=== PATIENT | male | born 1980 | race Caucasian/White ===

== ENCOUNTER 2025-04-03 09:16 | Outpatient (AMB) | payer OTHER, SELFPAY ==
--- NOTE | 2025-04-03 09:19 | A.OFFPC_ITS ---
Vital Signs 04/03/25 09:29 Height 5 ft 10.87 in Weight 220 lb 4 oz BMI 30.8 BP 123/90 H Blood Pressure Location Rt brachial Position Sitting Respiration 16 Pulse 82 Pulse Source Pulse Oximeter Temp 97.6 F Temp Source Oral Pulse Oximetry (%) 97 Oxygen Delivery Method Room Air Intake Visit Reasons: [employer] WORK[employer] / Bilateral Leg Pain A Auxiliary Required: No Accompanied by: Self / Same As Patient Allergies No Known Allergies Allergy (Verified 04/03/25 09:20) Medication List - Last Reconciled 04/03/25 by Ramone Allen MD No Known Home Meds Tobacco use date assessed: 04/03/25 Dental Screening Dental Screen Date: 04/03/25 Did you have a dental visit in the last 12 months?: Yes Did you have a dental problem in the last 6 months where you did not have access to dental care?: No Was dental information given to patient?: Patient has dentist HPI HPI Comments History of Present Illness Details History of Present Illness The patient is a 44-year-old male presenting for evaluation of pain in both legs. Bilateral leg pain: The patient reports pain in both legs, located on the sides, which makes it di fficult to bend them. The pain occurs at night and sometimes during the day, was very severe 3-4 weeks ago, but has been getting slightly better recently. He denies any swelling or lower back pain. 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 Onychomycosis: The patient has a long-standing history of a toenail fungal infection, for which a prior topical treatment was ineffective. History of hernia repair: He has a surgical history of bilateral inguinal and umbilical hernia repairs performed via laser about 10 years ago. Health Maintenance: The patient is establishing care, and his last visit with a doctor was about three years ago. He is 44 years old and is due for his initial colon cancer screening, which has not yet been done. Surgical History: - Bilateral inguinal and umbilical herni a repair, approximately 10 years ago. Medications: - The patient reports he is not taking a ny medications. Social History: - Tobacco Use: Denies smoking. - Alcohol Use: Denies drinking alcohol. - Illicit Drug Use: Denies use of illici t drugs. - Sexual History: Reports being sexually active. - Occupation: Works at a restaurant and is on his feet for 10-12 hours per day. - Sleep: Reports sleeping well. Family History: - Father: Had lung cancer, history of sm oking. - Other: Denies any other family history of cancer. Past Medical History - The patient denies any significant med ical history. - Last saw a physician approximately 3 y ears ago. Health Maintenance - Colorectal cancer screening: Patient i s 44 and due for screening. - Screening options including colonoscop y and Cologuard were discussed. - Patient has chosen to proceed with a c olonoscopy. - A comprehensive lab panel will be orde red for health screening, including a CBC, CMP, HbA1c, lipid panel, vitamin B12, vitamin D, folate, HIV, Hepatitis B, and Hepatitis C. [facility] Family History (Updated 04/03/25 @ 09:31 by uLis Enrique Gann MA) Father Diabetes Lung cancer Mother No problems noted. Social History Housing: House Patient Tobacco Use Status: Never used Tobacco service: No Current occupational status: employed Cognitive needs: No Hearing needs: No Vision needs: No Questionnaire PHQ-9 Over the last 2 weeks, how often have you been bothered by any of the following problems? 1. Little interest or pleasure in doing things: not at all 2. Feeling down, depressed, or hopeless: not at all 3. Trouble falling or staying asleep, or sleeping too much: not at all 4. Feeling tired or having little energy: not at all 5. Poor appetite or overeating: not at all 6. Feeling bad about yourself - or that you are a failure or have let yourself or your family down: not at all 7. Trouble concentrating on things, such as reading the newspaper or watching television: not at all 8. Moving or speaking so slowly that other people could have noticed. Or the opposite - being so fidgety or restless that you have been moving around a lot more than usual: not at all 9. Thoughts that you would be better off or of hurting yourself in some way: not at all Total score: 0 Source: Developed by Drs. Osmel Omalley, Sharyn Puri, Osiel Cantor and colleagues, with an educational charlotte from [employer]. Thrive Questionnaire Date Thrive assessed: 04/02/25 I am a: Patient What is your living situation today?: I have a steady place to live Within the past 12 months, did the food you bought not last and you didn't have the money to get more?: Never true Within the past 12 months, did you worry whether your food would run out before you got money to buy more?: I choose not to answer this question Do you have trouble paying for medicines?: No Do you have trouble getting transportation to medical appointments?: No Do you have trouble paying your heating and electricity bill?: No Do you have trouble taking care of your child, family member or friend?: No Do you have trouble with day-to-day activities such as bathing, preparing meals, shopping, managing finances, etc.?: No Are you currently unemployed and looking for a job?: Yes Are you interested in more education?: No Please select the resources that you would like help with: None Currently or been in a relationship where the following occur: No concerns reported THRIVE Score: 0 AUDIT C Alcohol Use Questionnaire (AUDIT-C) 1. How often do you have a drink containing alcohol?: Never 2. How many drinks containing alcohol do you have on a typical day when you are drinking?: 1 or 2 3. How often do you have six or more drinks on one occasion?: Never Total Score: 0 SAKINA-7 AMB Questionnaire SAKINA-7 Date SAKINA - 7 assessed: 04/03/25 Feeling nervous, anxious, or on edge: 0 = Not at all Not being able to stop or control worryin = Not at all Worrying too much about different things: 0 = Not at all Trouble relaxin = Not at all Being so restless that it is hard to sit still: 0 = Not at all Becoming easily annoyed or irritable: 0 = Not at all Feeling afraid as if something awful might happen: 0 = Not at all Total SAKINA-7 score (0-4 normal; 5-9 mild; 10-14 moderate; 15-21 severe): 0 Source: Developed by Drs. Osmel Omalley, Sharyn Puri, Osiel Cantor and colleagues, with an educational charlotte from [employer]. Review of Systems Narrative Review of Systems - Musculoskeletal: Reports bilateral leg pain that worsens with flexion. - Constitutional: Reports sleeping well. - GI/: Reports normal bowel and bladder function. - All other systems reviewed and are negative. 10-point ROS reviewed and negative except as noted in HPI Physical exam (Primary Care) Vital Signs: Last Vital Signs Temp 97.6 F 04/03/25 09:29 Pulse 82 04/03/25 09:29 Resp 16 04/03/25 09:29 BP 123/90 H 04/03/25 09:29 Pulse Ox 97 04/03/25 09:29 Oxygen Delivery Method Room Air 04/03/25 09:29 BMI result Body Mass Index 30.8 Tobacco/Smoking Status: Tobacco use Status Tobacco use date assessed 04/03/25 04/03/25 09:22 Patient Tobacco Use Status Never used Tobacco 04/03/25 09:22 PHQ-9: PHQ-9 Score PHQ-9: Total score 0 04/03/25 09:22 Thrive Assessment: Date of Thrive Assessment Date Thrive assessed 04/02/25 04/03/25 09:22 Currently or been in a relationship where the following occur: No concerns reported Narrative Physical Exam General: Well-appearing, in no acute distress. Vital signs: Within normal limits. HEENT: Normocephalic, atraumatic. PERRLA, EOMI. Conjunctiva clear, sclera anicteric. Oropharynx clear, mucous membranes moist. TMs intact bilaterally. Neck: Supple, no lymphadenopathy, no thyromegaly, no JVD or carotid bruits. Cardiovascular: RRR, normal S1/S2, no murmurs, rubs, or gallops. Peripheral pulses 2+ and symmetric. No edema. Respiratory: Lungs clear to auscultation bilaterally, no wheezes, rales, or rhonchi. Normal effort. Abdomen: Soft, non-tender, non-distended. Normoactive bowel sounds. No hepatosplenomegaly, no masses. MSK: Full range of motion, no joint swelling or deformity. Normal gait. Notable for pain in both lower legs, particularly on the sides, exacerbated by prolonged standing. Presence of varicose veins noted. Skin: Warm, dry, intact. No rashes, lesions, or pallor. Presence of nail fungus noted. Neuro: Alert and oriented x3. Cranial nerves II-XII intact. Strength 5/5 throughout. Sensation intact. Reflexes 2+ symmetric. Normal coordination and gait. Psych: Appropriate mood and affect. Normal judgment and insight. Coding Level of Care Code New Pt Level 4 (33161) Diagnoses Bilateral leg pain M79.604; M79.605 Varicose veins of both lower extremities with pain I83.813 Varicose vein complication: pain Laterality: bilateral Onychomycosis B35.1 History of hernia repair Z98.890; Z87.19 Class 1 obesity E66.9 Assessment & Plan Assessment & Plan (1) Bilateral leg pain: Code(s): M79.604 - Pain in right leg; M79.605 - Pain in left leg (2) Varicose vein of leg: Code(s): I83.90 - Asymptomatic varicose veins of unspecified lower extremity Qualifiers: Varicose vein complication: pain Laterality: bilateral Qualified Code(s): I83.813 - Varicose veins of bilateral lower extremities with pain (3) Onychomycosis: Code(s): B35.1 - Tinea unguium (4) History of hernia repair: Code(s): Z98.890 - Other specified postprocedural states; Z87.19 - Personal history of other diseases of the digestive system (5) Class 1 obesity: Code(s): E66.9 - Obesity, unspecified Plan Consent The patient provided verbal consent to record the visit. Patient was informed and verbally consented to the use of an ambient scribe for clinic note documentation during this visit. Plan 1. Bilateral Leg Pain - The pain is attributed to venous insufficiency from prolonged standing, given the presence of varicose veins. - A trial of compression stockings is recommended to promote circulation. - The patient was advised he can purchase these at a pharmacy or online. - The patient will follow up in two weeks to assess the effectiveness of this intervention. 2. Onychomycosis - The patient has a toenail fungal infection that failed to resolve with topical treatment. - Oral antifungal medication is indicated but will be deferred until after lab results are reviewed. 3. Preventative Care: Colon Cancer Screening - As the patient is 44, he is due for screening. - After discussing options including colonoscopy and Cologuard, the patient opted for a colonoscopy. - An order for a colonoscopy will be placed. 4. Preventative Care: New Patient Visit - To establish a baseline of health, comprehensive labs will be ordered, including a complete blood count, comprehensive metabolic panel, hemoglobin A1c, lipid panel, vitamin B12, vitamin D, folate, HIV, and hepatitis B and C screening. - The patient was instructed to get his blood drawn today. - A follow-up visit will be scheduled to discuss the results. Discussion Notes This is a new 44-year-old male patient establishing care. I discussed that his bilateral leg pain is likely due to venous insufficiency from prolonged standing, given his occupation and the presence of varicose veins. I recommended a trial of compression stockings and advised him to follow up in two weeks to assess the response. I noted a fungal infection in his toenails and explained that oral medication is required, as topical treatment has already failed. I informed him that we will wait for his lab results before starting this medication. I also reviewed the need for colorectal cancer screening, explaining the options of a colonoscopy and a Cologuard test. He elected to proceed with a colonoscopy, for which I will place an order. Finally, I explained that I am ordering a comprehensive panel of labs to get an overall picture of his health, with results to be discussed at his follow-up appointment. He provided consent to record the encounter. Patient Instructions - Please purchase and start wearing compression stockings for your leg pain. You can find these at a pharmacy like [facility] or online from [employer]. - Go to the lab to have your blood drawn today. - We will place an order for you to get a colonoscopy for colon cancer screening. - Please follow up in two weeks to discuss your lab results and to see how the compression stockings are working for you. Medical Decision Making The patient is a 44-year-old male new to the practice presenting with bilateral leg pain. His history of prolonged standing at work and physical exam finding of varicose veins support a diagnosis of venous insufficiency as the cause of his leg pain. An initial conservative management approach with a trial of compress ion stockings was recommended, with a plan to re-evaluate in two weeks. Onychomycosis was identified on physical exam. Given his history of failed topical therapy, oral antifungal medication is warranted. However, to ensure safety, treatment will be initiated only after reviewing his liver function tests from the ordered comprehensive metabolic panel. For health maintenance, the patient is overdue for colorectal cancer screening. After discussing the benefits and alternatives of colonoscopy versus Cologuard, the patient chose to proceed with a colonoscopy, and a referral will be placed. To establish a baseline of his overall health, a comprehensive lab panel including CBC, CMP, HbA1c, lipids, and vitamin levels was ordered. Total time spent caring for the patient today was 30 minutes. This includes time spent before the visit reviewing the chart, time spent documenting, and time spent reviewing laboratory results, diagnostic imaging, medications, performing a medically necessary evaluation, counseling on diagnoses, care coordination. Orders: Orders Comprehensive Met. Panel Today Z13.9 - Encounter for screening, unspecified Hemoglobin A1c Today Z13.9 - Encounter for screening, unspecified Lipid Panel Today Z13.9 - Encounter for screening, unspecified Magnesium Today Z13.9 - Encounter for screening, unspecified Vitamin D 1,25 dihydroxy Today Z13.9 - Encounter for screening, unspecified Complete Blood Count Auto Diff Today Z13.9 - Encounter for screening, unspecified Hepatitis B Surface Antibody Today Z13.9 - Encounter for screening, unspecified Hepatitis B Surface Antigen Today Z13.9 - Encounter for screening, unspecified Hepatitis C Antibody Today Z13.9 - Encounter for screening, unspecified HIV Ab/Ag Today Z13.9 - Encounter for screening, unspecified UA CC w/rflx Micro + Cult Today Z13.9 - Encounter for screening, unspecified Vitamin B12 and Folate Today Z13.9 - Encounter for screening, unspecified Referrals Open Access Screening Colonoscopy Referral Z12.11 - Encounter for screening for malignant neoplasm of colon, Z12.12 - Encounter for screening for malignant neoplasm of rectum
[2025-04-03 09:29] VITALS: BP 123/90; PULSE 82; RESP 16; TEMP 36.4; O2SAT 97; BMI 30.8
== END 2025-04-03 09:48 | disposition home or self-care (01) ==
LOC: HO.HMCFMS 09:16
PROVIDERS: PCP Family Medicine; Visit Provider Student in an Organized Health Care Education/Training Program
DX: M79.604 Pain in right leg (principal); M79.605 Pain in left leg; I83.813 Varicose veins of bilateral lower extremities with pain; B35.1 Tinea unguium; Z98.890 Other specified postprocedural states; Z87.19 Personal history of other diseases of the digestive system; E66.9 Obesity, unspecified

== ENCOUNTER → 2025-04-03 09:16 | Outpatient (BNVA) | payer OTHER, SELFPAY | PROVIDERS: PCP Family Medicine; Visit Provider Student in an Organized Health Care Education/Training Program | DX: M79.604 Pain in right leg (principal); M79.605 Pain in left leg; I83.813 Varicose veins of bilateral lower extremities with pain; B35.1 Tinea unguium; E66.9 Obesity, unspecified; Z68.30 Body mass index [BMI] 30.0-30.9, adult; Z87.19 Personal history of other diseases of the digestive system; Z98.890 Other specified postprocedural states | CPT/HCPCS: 96127; 99202 ==

== ENCOUNTER 2025-04-05 13:09 | Outpatient (REF) | payer OTHER, SELFPAY ==
[2025-04-05 17:29] LABS: MANUAL DIFF FLAG NO
[2025-04-05 17:43] LABS: Hematocrit 38.2 % (42.0-52.0); Hemoglobin 13.1 g/dl (14.0-18.0); Imm Gran Abs Auto 0.01 X10*3/uL (0.00-0.03); Imm Gran Pct Auto 0.2 % (0.0-0.4); Lymphocytes Absolute Auto 2.4 X10*3/uL (1.2-4.9); Mean Corpuscular HGB Conc 34.3 g/dl (31.0-36.0); Mean Corpuscular Hemoglobin 29.2 pg (27.0-33.0); Mean Corpuscular Volume 85.1 fL (80.0-98.0); NRBC Abs Auto 0.000 X10*3/uL (0.0-0.012); NRBC Pct Auto 0.0 /100WBC (0.0-0.2); Platelet Count 186 X10*3/uL (160-400); Red Blood Count 4.49 X10*6/uL (4.60-5.80); White Blood Count 5.4 X10*3/uL (4.8-10.8)
[2025-04-05 17:52] LABS: Appearance Urine Cloudy; Glucose Urine UA Negative (Negative); PH 6.0 (5.0-9.0); Specific Gravity - Urine 1.025 (1.005-1.025)
[2025-04-05 18:07] LABS: Alanine Aminotransferase 39 U/L (0-40); Albumin Level 4.7 g/dL (3.5-5.0); Alkaline Phosphatase 54 U/L (39-117); Anion Gap 12 (12-20); Aspartate Amino Transferase 38 U/L (5-37); Blood Urea Nitrogen 13 mg/dL (9-16); Calcium 8.6 mg/dL (8.4-10.2); Carbon Dioxide 24 mmol/L (22-29); Chloride 108 mmol/L (96-108); Cholesterol 196 mg/dL (<200); Estimated Glomerular Filt Rate > 60; HDL Cholesterol 40 mg/dL (>40); Magnesium 2.3 mg/dL (1.6-2.6); Potassium 3.5 mmol/L (3.3-5.1); Sodium 140 mmol/L (135-145); Total Protein 7.6 g/dL (6.5-8.0); Triglycerides 240 mg/dL (<150)
[2025-04-05 18:30] LABS: Folate 14.5 ng/mL (> or = 4.0); Vitamin B12 397 pg/mL (200-900)
[2025-04-06 07:57] LABS: HBsAGNum1 0.50 S/CO (0.00-0.99); HIV Num 1 0.05 S/CO (0.00-0.99); Hepatitis B Surface Antigen Negative (Negative); ~HepC Num1 0.17 S/CO (0.00-0.79); ~Hepatitis B Surface Antibody REACTIVE (Nonreactive); ~Hepatitis C Antibody Nonreactive (Nonreactive)
[2025-04-08 19:14] LABS: VITAMIN D (1,25 OH) D3 60 pg/mL; Vit D (1,25-Dihydroxy) Total 60 pg/mL (18-72); Vitamin D (1,25 OH) D2 <8 pg/mL
== END 2025-04-05 13:10 | disposition home or self-care (01) ==
LOC: HO.HKASLDS 13:09
PROVIDERS: PCP Student in an Organized Health Care Education/Training Program; Visit Provider Student in an Organized Health Care Education/Training Program
DX: Z11.4 Encounter for screening for human immunodeficiency virus [HIV] (principal); Z13.6 Encounter for screening for cardiovascular disorders; Z13.1 Encounter for screening for diabetes mellitus; Z13.21 Encounter for screening for nutritional disorder
CPT/HCPCS: 36415; 80053; 80061; 81003; 82607; 82652; 82746; 83036; 83735; 85025; 86706; 86803; 87340; 87389

== ENCOUNTER 2025-04-17 16:21 | Outpatient (AMB) | payer OTHER, SELFPAY ==
[2025-04-17 16:24] VITALS: BP 154/89; PULSE 83; RESP 16; TEMP 36.4; O2SAT 98; BMI 31.5
--- NOTE | 2025-04-17 16:24 | A.OFFPC_ITS ---
Vital Signs 04/17/25 16:24 Height 5 ft 10.27 in Weight 221 lb BMI 31.5 BP 154/89 H Blood Pressure Location Rt brachial Position Sitting Respiration 16 Pulse 83 Pulse Source Pulse Oximeter Temp 97.5 F Temp Source Oral Pulse Oximetry (%) 98 Oxygen Delivery Method Room Air Intake Visit Reasons: 2 wl lab review Allergies No Known Allergies Allergy (Verified 04/17/25 16:25) Tobacco use date assessed: 04/03/25 Dental Screening Dental Screen Date: 04/03/25 HPI HPI Comments History of Present Illness Details History of Present Illness The patient is a 44-year-old male presenting for a review of laboratory results. Iron deficiency anemia: Recent lab results showed slightly low red blood cells, hemoglobin, and hematocrit, suggestive of iron deficiency anemia, which may be related to his current diet. Prediabetes: The patient's hemoglobin A1c was 5.7%, which is at the lower threshold for a prediabetes diagnosis. Hyperlipidemia: The patient's lipid panel revealed triglycerides of 240 mg/dL, which is above the recommended level of 150 mg/dL. His total cholesterol was 196 mg/dL, LDL c holesterol was 108 mg/dL, and HDL cholesterol was 40 mg/dL. Bruxism and Stress: The patient reports experiencing an intermittent squeezing sensation in his face, which he associates with stress. 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 Onychomycosis LFTs are within normal range to start medication Social History: - Employment: The patient owns a [employer]. - Stress: He reports experiencing high l evels of stress related to his business. - Diet: His diet may be low in iron and includes items such as rice, white br ead, pasta, potatoes, cookies, sweets, sodas, and sugary drinks. Diagnostic Results: - CBC: White blood cells were normal; re d blood cells, hemoglobin, and hematocrit were slightly low. - Chemistry Panel: Sodium and potassium were normal; kidney and liver function were normal. - Hemoglobin A1c: 5.7%. - Lipid Panel: Total cholesterol 196 mg/ dL, triglycerides 240 mg/dL, LDL 108 mg/dL, HDL 40 mg/dL. - Vitamin Levels: Vitamin B12, vitamin D , and folate were normal. - Urinalysis: Normal. - Infectious Disease Screen: Negative fo r Hepatitis B, Hepatitis C, and HIV. Past Medical History Health Maintenance - Discussed lifestyle changes for anemia , prediabetes, and dyslipidemia. - Provided dietary counseling to increas e intake of iron-rich foods, greens, fiber, and lean meats, while reducing simple carbohydrates and sugars. - Recommended stress management techniqu es. - Screenings performed include CBC, CMP, HbA1c, lipid panel, vitamin levels, urinalysis, and infectious disease panel. [facility] Medical History (Updated 04/17/25 @ 17:03 by Ramone Allen MD) Bruxism Hyperlipidemia Prediabetes Iron deficiency anemia Onychomycosis Family History (Updated 04/03/25 @ 09:31 by Luis Enrique Gann MA) Father Diabetes Lung cancer Mother No problems noted. Social History Housing: House Patient Tobacco Use Status: Never used Tobacco service: No Current occupational status: employed Cognitive needs: No Hearing needs: No Vision needs: No Questionnaire Thrive Questionnaire Date Thrive assessed: 04/02/25 I am a: Patient What is your living situation today?: I have a steady place to live Within the past 12 months, did the food you bought not last and you didn't have the money to get more?: Never true Within the past 12 months, did you worry whether your food would run out before you got money to buy more?: I choose not to answer this question Do you have trouble paying for medicines?: No Do you have trouble getting transportation to medical appointments?: No Do you have trouble paying your heating and electricity bill?: No Do you have trouble taking care of your child, family member or friend?: No Do you have trouble with day-to-day activities such as bathing, preparing meals, shopping, managing finances, etc.?: No Are you currently unemployed and looking for a job?: Yes Are you interested in more education?: No Please select the resources that you would like help with: None Currently or been in a relationship where the following occur: No concerns reported THRIVE Score: 0 SAKINA-7 AMB Questionnaire SAKINA-7 Date SAKINA - 7 assessed: 04/03/25 Source: Developed by Drs. Osmel Omalley, Sharyn B.Osiel Montesinos and colleagues, with an educational charlotte from [employer]. Review of Systems Narrative Review of Systems - Neurological: Reports an intermittent squeezing sensation on the face. - Dental: Reports grinding his teeth at night. - Psychiatric: Reports feeling stressed. 10-point ROS reviewed and negative except as noted in HPI Physical exam (Primary Care) Vital Signs: Last Vital Signs Temp 97.5 F 04/17/25 16:24 Pulse 83 04/17/25 16:24 Resp 16 04/17/25 16:24 BP 154/89 H 04/17/25 16:24 Pulse Ox 98 04/17/25 16:24 Oxygen Delivery Method Room Air 04/17/25 16:24 BMI result Body Mass Index 31.5 Tobacco/Smoking Status: Tobacco use Status Tobacco use date assessed 04/03/25 04/17/25 16:30 Patient Tobacco Use Status Never used Tobacco 04/17/25 16:30 Thrive Assessment: Date of Thrive Assessment Date Thrive assessed 04/02/25 04/17/25 16:30 Currently or been in a relationship where the following occur: No concerns reported Narrative Physical Exam General: Well-appearing, in no acute distress. Vital signs: Within normal limits. HEENT: Normocephalic, atraumatic. PERRLA, EOMI. Conjunctiva clear, sclera anicteric. Oropharynx clear, mucous membranes moist. TMs intact bilaterally. Neck: Supple, no lymphadenopathy, no thyromegaly, no JVD or carotid bruits. Cardiovascular: RRR, normal S1/S2, no murmurs, rubs, or gallops. Peripheral pulses 2+ and symmetric. No edema. Respiratory: Lungs clear to auscultation bilaterally, no wheezes, rales, or rhonchi. Normal effort. Abdomen: Soft, non-tender, non-distended. Normoactive bowel sounds. No hepatosplenomegaly, no masses. MSK: Full range of motion, no joint swelling or deformity. Normal gait. Skin: Warm, dry, intact. No rashes, lesions, or pallor. Neuro: Alert and oriented x3. Cranial nerves II-XII intact. Strength 5/5 throughout. Sensation intact. Reflexes 2+ symmetric. Normal coordination and gait. Psych: Appropriate mood and affect. Normal judgment and insight. Reports stress- related symptoms and teeth grinding at night, advised to consider stress m anagement techniques and possibly consult a dentist for a mouth guard. Coding Level of Care Code Est Pt Level 3 (76511) Diagnoses Iron deficiency anemia D50.9 Prediabetes R73.03 Hyperlipidemia E78.5 Bruxism F45.8 Stress F43.9 Onychomycosis B35.1 Assessment & Plan Assessment & Plan (1) Iron deficiency anemia: Code(s): D50.9 - Iron deficiency anemia, unspecified Category: Medical (2) Prediabetes: Code(s): R73.03 - Prediabetes Category: Medical (3) Hyperlipidemia: Code(s): E78.5 - Hyperlipidemia, unspecified Category: Medical (4) Bruxism: Code(s): F45.8 - Other somatoform disorders Category: Medical (5) Stress: Code(s): F43.9 - Reaction to severe stress, unspecified (6) Onychomycosis: Code(s): B35.1 - Tinea unguium Category: Medical Plan Consent Patient was informed and verbally consented to the use of an ambient scribe for clinic note documentation during this visit. Plan 1. Iron Deficiency Anemia - Prescribed iron and vitamin C to be taken daily for three months. - Advised the patient to take the supplements one hour before or two hours after breakfast. - Counseled on potential side effects, including constipation and dark stools, and recommended increasing water and fiber intake or using MiraLAX if necessary. - Plan to repeat blood tests in three months. 2. Prediabetes - Advised dietary modifications, including reducing the intake of rice, white bread, pasta, potatoes, and cookies. 3. Hyperlipidemia - Recommended reducing the consumption of sweets, sodas, sugary drinks, and candies to lower triglycerides. - Advised adjusting his diet to include more greens, fiber, and lean meats to improve his overall cholesterol profile. 4. Bruxism And Stress - The patient's facial squeezing sensation is likely related to stress and bruxism. - Recommended a consultation with a dentist for a mouth guard to address teeth grinding. - Provided counseling on stress management, emphasizing the importance of taking personal time to relax. - Offered a referral for mental health services, which the patient declined. 5. Onychomycosis We will start p.o. terbinafine for 45 days Returns to clinic for evaluation of liver enzyme Patient is aware verbalizes understanding Discussion Notes I reviewed the patient's recent lab results with him, which were overall good but showed a few areas for improvement. I explained that his slightly low red blood cell count indicates mild iron deficiency anemia, and I prescribed a three-month course of iron and vitamin C to correct this. I advised him on how to take the supplements and warned him about potential side effects like constipation and dark stools. We discussed his hemoglobin A1c of 5.7%, which places him in the prediabetic range, and his elevated triglycerides and borderline high LDL cholesterol. I emphasized that these numbers can be improved with dietary changes, and we reviewed specific foods to reduce, such as simple carbohydrates and sugars. The patient also reported a squeezing facial sensation, which we discussed in the context of his self-reported stress and teeth grinding. I recommended he see his dentist for a mouth guard and provided counseling on stress management techniques. I offered a referral for mental health support, which he declined at this time. The plan is to recheck his bloodwork in three months. Patient Instructions - Take one iron pill and one vitamin C pill every day for the next three months. - Take your supplements either one hour before breakfast or two hours after breakfast. - Be aware that the iron supplement may cause constipation and may turn your stool dark or black, which is a normal side effect. To help with constipation, drink plenty of water and eat more fiber. You can use an [id number] product like MiraLAX if needed. - To improve your blood sugar and cholesterol levels, cut down on foods like rice, white bread, pasta, potatoes, cookies, sweets, sodas, and other sugary drinks. - Try to eat more green vegetables, fiber, and lean meats. - Your facial squeezing sensation may be from grinding your teeth at night due to stress. Talk to your dentist about getting a mouth guard. - It is important to find time for yourself to relax and manage stress. - You will need to have your blood tested again in three months to see how you are doing. Medical Decision Making The patient is a 44-year-old male who presented for a review of his lab results. The findings of a slightly low hemoglobin and hematocrit are consistent with a mild iron deficiency anemia, likely nutritional given his dietary habits. I have initiated a three-month trial of oral iron and vitamin C supplementation to replete his iron stores, with a plan to re-evaluate with repeat labs upon completion. His hemoglobin A1c of 5.7% meets the criteria for prediabetes, and his lipid panel showed hypertriglyceridemia (240 mg/dL) and borderline elevated LDL (108 mg/dL). Given these findings, the primary intervention at this stage is aggressi ve lifestyle and dietary modification to prevent progression to type 2 diabetes and to improve his lipid profile. Pharmacotherapy is not indicated at this time. The patient's complaint of facial squeezing appears multifactorial, likely related to high occupational stress and associated bruxism. Management includes a recommendation for a dental evaluation for a mouth guard and counseling on stress reduction techniques. A referral for formal mental health support was offered but declined by the patient. We will treat onychomycosis with terbinafine p.o. advised to return in 45 days to recheck liver enzymes Total Time Statement 20 min Total time spent caring for the patient today includes pre-visit chart review, documentation, review of laboratory and diagnostic imaging results, medication r econciliation, medically necessary evaluation, counseling on diagnoses, care coordination, ordering appropriate tests and medications, review of tests performed by other providers, reporting test results to the patient, and communication with other healthcare providers. Medications: New terbinafine HCl 250 mg PO DAILY 45 tabs 0RF B35.1 - Tinea unguium ascorbic acid (vitamin C) 500 mg PO DAILY 90 tabs 0RF ferrous sulfate 325 mg PO DAILY 90 tabs 0RF
== END 2025-04-17 16:47 | disposition home or self-care (01) ==
LOC: HO.HMCFMS 16:22
PROVIDERS: PCP Family Medicine; Visit Provider Student in an Organized Health Care Education/Training Program
DX: D50.9 Iron deficiency anemia, unspecified (principal); R73.03 Prediabetes; E78.5 Hyperlipidemia, unspecified; F45.8 Other somatoform disorders; F43.9 Reaction to severe stress, unspecified; B35.1 Tinea unguium

== ENCOUNTER → 2025-04-17 16:21 | Outpatient (BNVA) | payer OTHER, SELFPAY | PROVIDERS: PCP Family Medicine; Visit Provider Student in an Organized Health Care Education/Training Program | DX: D50.9 Iron deficiency anemia, unspecified (principal); R73.03 Prediabetes; E78.5 Hyperlipidemia, unspecified; F45.8 Other somatoform disorders; F43.9 Reaction to severe stress, unspecified; B35.1 Tinea unguium | CPT/HCPCS: 99212 ==

== ENCOUNTER 2025-05-29 08:36 | Outpatient (AMB) | payer OTHER, SELFPAY ==
--- NOTE | 2025-05-29 08:37 | A.OFFPC_ITS ---
Vital Signs 05/29/25 08:41 Height 5 ft 10.27 in Weight 219 lb BMI 31.2 BP 128/86 Blood Pressure Location Rt brachial Position Sitting Respiration 17 Pulse 71 Pulse Source Pulse Oximeter Temp 97.8 F Temp Source Oral Pulse Oximetry (%) 97 Oxygen Delivery Method Room Air Intake Visit Reasons: 45 day f/u - pt chose this date Intake Note: Patient present for follow up. 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 Onychomycosis: The patient is being treated for nail fungus and has completed approximately 42- 45 days of terbinafine. The treatment is planned for a total of three months. The patient reports that the nail's appearance is unchanged. Medications: - Terbinafine for onychomycosis, has bee n taking for about 45 days. - Vitamin C - ferrous sulfate Past Medical History - Onychomycosis, currently under treatme nt with terbinafine. Health Maintenance - Laboratory monitoring: Ordered blood w ork to check liver function due to terbinafine therapy. [facility] Medical History (Updated 05/29/25 @ 08:48 by Ramone Allen MD) Bruxism Hyperlipidemia Prediabetes Iron deficiency anemia Onychomycosis Surgical History (Updated 05/29/25 @ 08:40 by Malik Nevarez CMA) No pertinent past surgical history Family History (Updated 05/29/25 @ 08:40 by Malik Nevarez CMA) Father Diabetes Lung cancer Mother No problems noted. Social History (Updated 05/29/25 @ 08:40 by Malik Nevarez CMA) Housing: House Alcohol intake: never Patient Tobacco Use Status: Never used Tobacco e-Cigarette/Vaping Use: Never Used service: No Current occupational status: employed Cognitive needs: No Hearing needs: No Vision needs: No Questionnaire Thrive Questionnaire Date Thrive assessed: 04/02/25 SAKINA-7 AMB Questionnaire SAKINA-7 Date SAKINA - 7 assessed: 04/03/25 Source: Developed by Drs. Osmel Omalley, Sharyn Puri, Osiel Cantor and colleagues, with an educational charlotte from [employer]. Review of Systems Narrative Review of Systems - Integumentary: Reports nail fungus; the appearance of the affected nail is unchanged. 10-point ROS reviewed and negative except as noted in HPI Physical exam (Primary Care) Vital Signs: Last Vital Signs Temp 97.8 F 05/29/25 08:41 Pulse 71 05/29/25 08:41 Resp 17 05/29/25 08:41 BP 128/86 05/29/25 08:41 Pulse Ox 97 05/29/25 08:41 Oxygen Delivery Method Room Air 05/29/25 08:41 BMI result Body Mass Index 31.2 Tobacco/Smoking Status: Tobacco use Status Tobacco use date assessed 04/03/25 05/29/25 08:39 Patient Tobacco Use Status Never used Tobacco 05/29/25 08:40 e-Cigarette/Vaping Use Never Used 05/29/25 08:42 Thrive Assessment: Date of Thrive Assessment Date Thrive assessed 04/02/25 05/29/25 08:39 Narrative Physical Exam General: Well-appearing, in no acute distress. Vital signs: Within normal limits. HEENT: Normocephalic, atraumatic. PERRLA, EOMI. Conjunctiva clear, sclera anicteric. Oropharynx clear, mucous membranes moist. TMs intact bilaterally. Neck: Supple, no lymphadenopathy, no thyromegaly, no JVD or carotid bruits. Cardiovascular: RRR, normal S1/S2, no murmurs, rubs, or gallops. Peripheral pulses 2+ and symmetric. No edema. Respiratory: Lungs clear to auscultation bilaterally, no wheezes, rales, or rhonchi. Normal effort. Abdomen: Soft, non-tender, non-distended. Normoactive bowel sounds. No hepatosplenomegaly, no masses. MSK: Full range of motion, no joint swelling or deformity. Normal gait. Skin: Warm, dry, intact. No rashes, lesions, or pallor. Neuro: Alert and oriented x3. Cranial nerves II-XII intact. Strength 5/5 throughout. Sensation intact. Reflexes 2+ symmetric. Normal coordination and gait. Psych: Appropriate mood and affect. Normal judgment and insight. Coding Level of Care Code Est Pt Level 3 (47828) Add On Problem Visit Only Diagnoses Onychomycosis B35.1 Iron deficiency anemia D50.9 Class 1 obesity E66.811 Assessment & Plan Assessment & Plan (1) Onychomycosis: Code(s): B35.1 - Tinea unguium Category: Medical (2) Iron deficiency anemia: Code(s): D50.9 - Iron deficiency anemia, unspecified Category: Medical (3) Class 1 obesity: Code(s): E66.811 - Obesity, class 1 Category: Medical Plan Consent Patient was informed and verbally consented to the use of an ambient scribe for clinic note documentation during this visit. Plan 1. Onychomycosis - Blood work has been ordered to monitor liver function prior to continuing therapy. - A refill for terbinafine will be sent to the pharmacy for the patient to complete the full three-month treatment course. - The patient was educated that visible improvement will take time as the nail needs to grow out. Discussion Notes I discussed with the patient that we need to obtain blood work to monitor his liver function before he continues the terbinafine. I explained that the lack of change in the nail's appearance is expected, as the nail must grow out for improvement to be seen, which is why the treatment is for three months. I informed him that I will refill the terbinafine to allow him to complete the full course of therapy. Patient Instructions - Go to the lab to have your blood work done to check your liver. - After the lab work, continue taking your terbinafine medication to finish the full three-month treatment for the nail fungus. - Be aware that it takes time for the nail to grow out, so you may not see changes right away. - Continue taking your vitamin C with ferrous sulfate for iron deficiency anemia Medical Decision Making The patient presents for a follow-up visit for onychomycosis, currently 45 days into a planned 3-month course of terbinafine. Given the use of terbinafine, it is medically necessary to monitor liver function. Therefore, I have ordered labs to check his liver enzymes before continuing the medication. The patient's report of no change in the nail's appearance is an expected finding at this stage of treatment, as clinical improvement is contingent on the rate of new nail growth. The plan is to refill his terbinafine prescription to ensure he can complete the full therapeutic course. Total Time Statement 20 min Total time spent caring for the patient today includes pre-visit chart review, documentation, review of laboratory and diagnostic imaging results, medication reconciliation, medically necessary evaluation, counseling on diagnoses, care coordination, ordering appropriate tests and medications, review of tests performed by other providers, reporting test results to the patient, and communication with other healthcare providers. Orders: Orders Comprehensive Met. Panel Today B35.1 - Tinea unguium Medications: Refilled terbinafine HCl 250 mg PO DAILY 45 tabs 0RF B35.1 - Tinea unguium
[2025-05-29 08:41] VITALS: BP 128/86; PULSE 71; RESP 17; TEMP 36.6; O2SAT 97; BMI 31.2
== END 2025-05-29 08:48 | disposition home or self-care (01) ==
LOC: HO.HMCFMS 08:36
PROVIDERS: PCP Student in an Organized Health Care Education/Training Program; Visit Provider Student in an Organized Health Care Education/Training Program
DX: B35.1 Tinea unguium (principal); D50.9 Iron deficiency anemia, unspecified; E66.811 Obesity, class 1

== ENCOUNTER 2025-05-29 08:36 | Outpatient (REF) | payer OTHER, SELFPAY ==
[2025-05-29 14:38] LABS: Alanine Aminotransferase 33 U/L (0-40); Albumin Level 4.5 g/dL (3.5-5.0); Alkaline Phosphatase 56 U/L (39-117); Anion Gap 10 (12-20); Aspartate Amino Transferase 24 U/L (5-37); Blood Urea Nitrogen 16 mg/dL (9-16); Calcium 9.0 mg/dL (8.4-10.2); Carbon Dioxide 25 mmol/L (22-29); Chloride 110 mmol/L (96-108); Estimated Glomerular Filt Rate > 60; Potassium 4.0 mmol/L (3.3-5.1); Sodium 141 mmol/L (135-145); Total Protein 7.3 g/dL (6.5-8.0)
== END 2025-05-29 08:37 | disposition home or self-care (01) ==
LOC: HO.HKASLDS 08:36
PROVIDERS: PCP Student in an Organized Health Care Education/Training Program; Visit Provider Student in an Organized Health Care Education/Training Program
DX: B35.1 Tinea unguium (principal); D50.9 Iron deficiency anemia, unspecified; E66.811 Obesity, class 1; Z68.31 Body mass index [BMI] 31.0-31.9, adult; Z71.3 Dietary counseling and surveillance
CPT/HCPCS: 36415; 80053; 99212